=== PATIENT | female | born 1970 | race American Indian/Alaskan Native ===

== ENCOUNTER 2019-11-10 21:30 | Emergency (ER) | payer OTHER ==
--- NOTE | 2019-11-10 21:50 | Emergency Department Report ---
ED Rash HPI - HPI Chief Complaint: Allergic Reaction Stated Complaint: POSS ALLERGIC REACTION Time Seen by Provider: 11/10/19 21:49 Duration: Today Location: Abdomen, Upper Extremities Suspected Cause: Other Rash Symptoms: Yes Itching, No Facial Swelling, No Tongue/Oral Swelling (Perfume or soap.), No Breathing Difficulties, No Choking Sensation, No Wheezing/Dyspnea, No Peeling, No Blistering, No Fever, No Lightheaded, No Malaise, No Myalgias Severity: moderate Other History: 49-year-old -Maldivian female presents to the emergency room complaining of hives when trying a new perfume or new soap. Patient states that it started today. Patient reports that she took Benadryl approximately 6 PM. Patient denies any shortness of breath no swelling of the tongue no difficulty swallowing no difficulty breathing no chest pain no nausea no vomiting no diarrhea. Patient reports she has no known drug allergies she does not have a primary care provider. Patient states this happened in the past and she had to come and get a steroid injection. ED Review of Systems ROS: Stated complaint: POSS ALLERGIC REACTION Other details as noted in HPI Comment: All other systems reviewed and negative ENT: denies: throat pain Respiratory: denies: cough, shortness of breath, SOB with exertion, SOB at rest, wheezing Cardiovascular: denies: chest pain, palpitations Gastrointestinal: denies: nausea, vomiting, diarrhea, constipation Neurological: denies: headache, weakness, paresthesias ED Past Medical Hx - Past Medical History Previous Medical History?: Yes Hx Hypertension: Yes - Social History Smoking Status: Never Smoker Substance Use Type: None - Medications Home Medications: Home Medications Medication Instructions Recorded Confirmed Last Taken Type Cetirizine HCl [Zyrtec 10mg tab] 10 mg PO QDAY 5 Days #5 tablet 11/10/19 Unknown Rx Famotidine [Pepcid] 20 mg PO BID 5 Days #10 tablet 11/10/19 Unknown Rx predniSONE [Deltasone] 20 mg PO QDAY 5 Days #5 tab 11/10/19 Unknown Rx Rash Exam - Exam General: Vital signs noted. No distress. Alert and acting appropriately. ED Course Vital Signs 11/10/19 21:34 Temperature 98.3 F Pulse Rate 93 H Respiratory 18 Rate Blood Pressure 154/94 O2 Sat by Pulse 100 Oximetry ED Medical Decision Making - Medical Decision Making 49-year-old -Maldivian female presents to the emergency room complaining of hives when trying a new perfume or new soap. Patient states that it started today. Patient reports that she took Benadryl approximately 6 PM. Patient denies any shortness of breath no swelling of the tongue no difficulty swallowing no difficulty breathing no chest pain no nausea no vomiting no diarrhea. Patient reports she has no known drug allergies she does not have a primary care provider. Patient states this happened in the past and she had to come and get a steroid injection. Patient be given a dexamethasone 10 mg IV M and 20 mg of famotidine p.o. patient will be discharged home on prednisone 40 mg p.o. daily for the next 5 days. Patient is instructed to try taking Claritin [id number] 10 mg daily for the next 5 days and famotidine 20 mg p.o. twice daily for the next 5 days Critical care attestation.: If time is entered above; I have spent that time in minutes in the direct care of this critically ill patient, excluding procedure time. ED Disposition Clinical Impression: Urticaria, Allergic reaction Disposition: [id number]-01 TO HOME OR SELFCARE Is pt being admited?: No Does the pt Need Aspirin: No Condition: Stable Instructions: Urticaria (ED) Additional Instructions: Please take medications as prescribed. Follow-up with an crusher machine operator or primary care provider. Prescriptions: predniSONE [Deltasone] 20 mg PO QDAY 5 Days #5 tab Famotidine [Pepcid] 20 mg PO BID 5 Days #10 tablet Cetirizine HCl [Zyrtec 10mg tab] 10 mg PO QDAY 5 Days #5 tablet Referrals: PRIMARY CARE, [Primary Care Provider] - 3-5 Days [facility] [Outside] - 3-5 Days
[2019-11-10 21:53] VITALS: BP 154/94
[2019-11-10] MEDS ORDERED: FAMOTIDINE 20 MG TAB PO ONE (21:56)
[2019-11-10] MEDS ORDERED: dexAMETHasone 20 MG/5 ML VIAL IV ONE (21:56)
[2019-11-10] MEDS ORDERED: dexAMETHasone 20 MG/5 ML VIAL IM ONE (21:59)
== END 2019-11-10 22:10 | disposition home or self-care (01) ==
LOC: ED 21:30
DX: L50.9 Urticaria, unspecified (principal); T78.40XA Allergy, unspecified, initial encounter; I10 Essential (primary) hypertension; Z79.899 Other long term (current) drug therapy
CPT/HCPCS: 96372; 99282; J1100

== ENCOUNTER 2020-01-24 21:34 | Emergency (ER) | payer OTHER ==
[2020-01-25] MEDS ORDERED: CLINDAMYCIN 300 MG CAP PO ONE (04:09)
[2020-01-25] MEDS ORDERED: KETOROLAC 30 MG/1 ML INJ IM ONE (04:09)
[2020-01-25] MEDS ORDERED: dexAMETHasone 20 MG/5 ML VIAL IM ONE (04:09)
[2020-01-25] MEDS ORDERED: ONDANSETRON 4 MG ODT TAB PO ONE (04:10)
[2020-01-25] MEDS ORDERED: HYDROcodone/ACETAMINOPHEN 5-325 MG TAB PO ONE (04:10)
--- NOTE | 2020-01-25 04:34 | Emergency Department Report ---
ED General Adult HPI - General Chief complaint: Dental/Oral Stated complaint: RT SIDE TOOTHACHE/JAW SWELLING Source: patient Mode of arrival: Ambulatory Limitations: No Limitations - History of Present Illness Initial comments: Patient is a 49-year-old -Cuban female with a history of hypertension presents to the ED with complaint of acute onset persistent severe right mandibular premolar molar toothaches with swollen gums for the last 2 days. Patient states that he has been having persistent pain especially in the last 12 hours and has been taking [id number] medication with no relief. Patient denies dizziness, syncope, chest pain, shortness of breath, fever, chills, cough, headache, sore throat or nausea and vomiting or abdominal pain. MD Complaint: Right mandibular premolar and molar toothache; swollen right mandible -: Sudden, days(s) (2) Location: mouth (right mandibular swelling) Radiation: non-radiation Severity scale (0 -10): 6 Quality: aching Consistency: constant Improves with: none Worsens with: none Associated Symptoms: denies other symptoms, loss of appetite, malaise. denies: confusion, chest pain, cough, diaphoresis, fever/chills, headaches, nausea/vomiting, rash, seizure, shortness of breath, syncope, weakness, other Treatments Prior to Arrival: none - Related Data Previous Rx's Medication Instructions Recorded Last Taken Type Cetirizine HCl [Zyrtec 10mg tab] 10 mg PO QDAY 5 Days #5 tablet 11/10/19 Unknown Rx Famotidine [Pepcid] 20 mg PO BID 5 Days #10 tablet 11/10/19 Unknown Rx predniSONE [Deltasone] 20 mg PO QDAY 5 Days #5 tab 11/10/19 Unknown Rx Acetaminophen/Codeine [Tylenol 1 tab PO Q6H PRN #12 tab 01/25/20 Unknown Rx /Codeine # 3 tab] Clindamycin [Clindamycin CAP] 300 mg PO Q8HR #60 capsule 01/25/20 Unknown Rx Ketorolac [Toradol] 10 mg PO Q8H PRN #20 tablet 01/25/20 Unknown Rx Allergies Allergy/AdvReac Type Severity Reaction Status Date / Time No Known Allergies Allergy Verified 01/24/20 22:39 ED Review of Systems ROS: Stated complaint: RT SIDE TOOTHACHE/JAW SWELLING Other details as noted in HPI Constitutional: denies: chills, fever Eyes: denies: eye pain, eye discharge, vision change ENT: dental pain (right mandibular premolar toothache; swollen gums). denies: ear pain, throat pain Respiratory: denies: cough, shortness of breath, wheezing Cardiovascular: denies: chest pain, palpitations Endocrine: no symptoms reported Gastrointestinal: denies: abdominal pain, nausea, diarrhea Genitourinary: denies: urgency, dysuria, discharge Musculoskeletal: denies: back pain, joint swelling, arthralgia Skin: denies: rash, lesions Neurological: denies: headache, weakness, paresthesias Psychiatric: denies: anxiety, depression Hematological/Lymphatic: denies: easy bleeding, easy bruising ED Past Medical Hx - Past Medical History Hx Hypertension: Yes - Surgical History Past Surgical History?: No - Social History Smoking Status: Never Smoker Substance Use Type: None - Medications Home Medications: Home Medications Medication Instructions Recorded Confirmed Last Taken Type Cetirizine HCl [Zyrtec 10mg tab] 10 mg PO QDAY 5 Days #5 tablet 11/10/19 Unknown Rx Famotidine [Pepcid] 20 mg PO BID 5 Days #10 tablet 11/10/19 Unknown Rx predniSONE [Deltasone] 20 mg PO QDAY 5 Days #5 tab 11/10/19 Unknown Rx Acetaminophen/Codeine [Tylenol 1 tab PO Q6H PRN #12 tab 01/25/20 Unknown Rx /Codeine # 3 tab] Clindamycin [Clindamycin CAP] 300 mg PO Q8HR #60 capsule 01/25/20 Unknown Rx Ketorolac [Toradol] 10 mg PO Q8H PRN #20 tablet 01/25/20 Unknown Rx ED Physical Exam - General Limitations: No Limitations General appearance: alert, in no apparent distress - Head Head exam: Present: atraumatic, normocephalic, normal inspection - Eye Eye exam: Present: normal appearance, PERRL, EOMI Pupils: Present: normal accommodation - ENT ENT exam: Present: mucous membranes moist, TM's normal bilaterally, normal external ear exam, other (Swollen, severely tender right mandibular gingiva; severely tender right mandibular premolar and molar tenderness) - Neck Neck exam: Present: normal inspection, full ROM - Respiratory Respiratory exam: Present: normal lung sounds bilaterally. Absent: respiratory distress, wheezes, rales, stridor, chest wall tenderness, accessory muscle use, decreased breath sounds - Cardiovascular Cardiovascular Exam: Present: regular rate, normal rhythm, normal heart sounds. Absent: systolic murmur, diastolic murmur, rubs, gallop - GI/Abdominal GI/Abdominal exam: Present: soft, normal bowel sounds. Absent: tenderness, guarding, hyperactive bowel sounds, hypoactive bowel sounds - Extremities Exam Extremities exam: Present: normal inspection, full ROM, normal capillary refill - Back Exam Back exam: Present: normal inspection, full ROM. Absent: tenderness, CVA tenderness (R), CVA tenderness (L), muscle spasm, paraspinal tenderness, vertebral tenderness - Neurological Exam Neurological exam: Present: alert, oriented X3, CN II-XII intact, normal gait, reflexes normal - Psychiatric Psychiatric exam: Present: normal affect, normal mood - Skin Skin exam: Present: warm, dry, intact, normal color. Absent: rash ED Course Vital Signs 01/24/20 22:40 Temperature 98.4 F Pulse Rate 87 Respiratory 18 Rate Blood Pressure 142/92 O2 Sat by Pulse 100 Oximetry ED Medical Decision Making - Medical Decision Making This is a 49-year-old -Cuban female with a history of hypertension presents to the ED with complaint of acute onset persistent severe right mandibular premolar molar toothaches with swollen gums for the last 2 days. Patient states that he has been having persistent pain especially in the last 12 hours and has been taking [id number] medication with no relief. In the ED, patient is alert and oriented x3, and is in no acute distress, but appears to be in severe pain. Patient was treated for pain and given initial oral antibiotics. Patient was discharged home on medications and advised to follow up with her Dentist in 7-10 days for reevaluation. Patient was advised to return to the ED immediately if symptoms get worse. - Differential Diagnosis dental abscess; gingivitis; Dental caries Critical care attestation.: If time is entered above; I have spent that time in minutes in the direct care of this critically ill patient, excluding procedure time. ED Disposition Clinical Impression: Dental abscess, Acute gingivitis, Dental caries Disposition: TO HOME OR SELFCARE Is pt being admited?: No Does the pt Need Aspirin: No Condition: Stable Instructions: Dental Abscess (ED), Gingivitis (ED), Dental Caries (ED) Additional Instructions: Take medication with food, drink plenty fluids and follow-up with your dentist in 7 to 10 days for reevaluation. Return to the ED immediately if symptoms get worse. Prescriptions: Clindamycin [Clindamycin CAP] 300 mg PO Q8HR #60 capsule Ketorolac [Toradol] 10 mg PO Q8H PRN #20 tablet PRN Reason: Pain Acetaminophen/Codeine [Tylenol /Codeine # 3 tab] 1 tab PO Q6H PRN #12 tab PRN Reason: Pain , Severe (7-10) Referrals: [facility] [Outside] - 7-10 days [facility] [Outside] - 7-10 days Time of Disposition: 04:35 Print Language: [place]
[2020-01-25 07:48] VITALS: BP 132/65
== END 2020-01-25 05:49 | disposition home or self-care (01) ==
LOC: ED 21:34
DX: K04.7 Periapical abscess without sinus (principal); K02.9 Dental caries, unspecified; K05.00 Acute gingivitis, plaque induced; I10 Essential (primary) hypertension; Z79.2 Long term (current) use of antibiotics; Z79.899 Other long term (current) drug therapy
CPT/HCPCS: 96372; 99282; J1100; J1885; Q0162